=== PATIENT | female | born 1985 | race Caucasian/White ===

== ENCOUNTER 2017-01-30 07:27 | Inpatient (IN) | payer OTHER ==
[2017-01-30] MEDS ORDERED: Sodium Chloride 0.9% 10 ML Syringe FLUSH PRN (08:35)
[2017-01-30] MEDS ORDERED: Ondansetron 4 MG Tab.DIS PO PRN (08:35)
--- NOTE | 2017-01-30 08:57 | PCM.LDHP ---
L&D History of Present Illness - General Date of Service: 01/30/17 (PROM) Admit Problem/Dx: Patient Status Order with Admit Dx/Problem 01/30/17 08:35 Patient Status [ADT] Routine Admission Diagnosis/Problem Admission Diagnosis/Problem Source of Information: Patient History Limitations: Reports: No limitations - History of Present Illness Timing/Duration: Reports: minutes: (3) Location, : Reports: Abdomen Quality: Reports: Pressure Severity: moderate Improves with: Reports: Movement Worsens with: Reports: Rest - Related Data Allergies/Adverse Reactions: Allergies Allergy/AdvReac Type Severity Reaction Status Date / Time amoxicillin Allergy Tachycardia Verified 01/30/17 07:40 Home Medications: Home Meds Aspirin [Halfprin] 81 mg PO DAILY 01/30/17 [History] #57/Iron/FA/DSS/DHA [Extra-Virt Plus Dha Softgel] 1 cap PO DAILY [History] 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 Para: 0 LMP (Approximate): (CHANA 02/11/17) H&P Review of Systems - Review of Systems: Review Of Systems: See Below General: Reports: no symptoms HEENT: Reports: no symptoms Pulmonary: Reports: No Symptoms Cardiovascular: Reports: no symptoms Gastrointestinal: Reports: No symptoms Genitourinary: Reports: no symptoms Musculoskeletal: Reports: no symptoms Skin: Reports: no symptoms Psychiatric: Reports: no symptoms Neurological: Reports: No Symptoms Hematologic/Lymphatic: Reports: no symptoms Immunologic: Reports: no symptoms L&D Exam - Exam Exam: See Below - Vital Signs Vital Signs: Last Vital Signs Temp 98.2 F 01/30/17 07:37 Pulse 69 01/30/17 07:37 Resp 20 01/30/17 07:37 BP 132/88 01/30/17 07:37 Pulse Ox Weight: 190 lb - OB Specific Contraction Intensity: Moderate movement: active heart tones: present (145) Heart Rate (FHR) Variability: Moderate (6-25 bmp) Presentation: Vertex Estimated Weight: 7 pounds - Pereyra Score Pereyra Score Cervix Position: Midposition Pereyra Score Consistency: Soft Pereyra Score Effacement: 31-50% Pereyra Score Dilation: 1-2 cm Pereyra Score Infant's Station: -1 ,0 Pereyra Score Total: 7 - Exam General: alert, oriented HEENT: PERRLA, Conjunctiva clear, EACs clear, EOMI, Hearing intact, Mucosa moist & pink, Nares patent, Normal nasal septum, Posterior pharynx clear, Pupils equal, Pupils reactive, TMs clear Neck: supple, trachea midline Lungs: Clear to auscultation, Normal respiratory effort Cardiovascular: regular rate, regular rhythm Abdomen: soft Rectal Exam: Normal rectal tone Genitourinary: Normal external exam Back Exam: normal inspection, full range of motion Extremities: normal inspection Skin: warm, dry, intact Neurological: cranial nerves intact, reflexes equal bilateral Psychiatric: alert, normal affect, normal mood - Patient Data Lab Results last 24 hrs: Laboratory Results - last 24 hr 01/30/17 Range/Units 07:49 Membrane Rupture Positive H (NEGATIVE) - Problem List (1) Antiphospholipid antibody syndrome complicating SNOMED Code(s): 587480174 ICD Code: O99.119 - OTH DIS OF BLD/BLD-FORM ORG/IMMUN MECHNSM COMP PREG,UNSP TRI; D68.61 - ANTIPHOSPHOLIPID SYNDROME Status: Acute Current Visit: Yes (2) SNOMED Code(s): 53018918 ICD Code: Z33.1 - STATE, INCIDENTAL Status: Acute Current Visit : Yes Qualifiers: Weeks of gestation: 38 weeks Qualified Code(s): Z3A.38 - 38 weeks gestation of (3) PROM (premature rupture of membranes) SNOMED Code(s): 45238439 ICD Code: O42.90 - RAKAN ROM, 7TH0 BETW RUPT & ONST LABR, UNSP WEEKS OF GEST Status: Acute Current Visit: Yes Problem List Initiated/Reviewed/Updated: Yes Orders Last 24hrs: Active Orders 24 hr Category Date Time Status Patient Status [ADT] Routine ADT 01/30/17 08:35 Ordered Antiembolic Devices [RC] .Routine Care 01/30/17 08:38 Ordered Communication Order [RC] ASDIRECTED Care 01/30/17 08:35 Ordered Heart Tones [RC] PER UNIT ROUTINE Care 01/30/17 08:35 Ordered May Shower [RC] ASDIRECTED Care 01/30/17 08:35 Ordered Notify Provider Vital Signs [RC] PRN Care 01/30/17 08:35 Ordered Notify Provider [RC] PRN Care 01/30/17 08:35 Ordered OB Check [OM.PC] Click to Edit Care 01/30/17 07:43 Ordered Up ad Janae [RC] ASDIRECTED Care 01/30/17 08:35 Ordered VTE/DVT Education [RC] Click to Edit Care 01/30/17 08:38 Ordered Vital Signs [RC] PER UNIT ROUTINE Care 01/30/17 08:35 Ordered CBC W/O DIFF,HEMOGRAM [HEME] Routine Lab 01/30/17 08:35 Ordered DRUG SCREEN, URINE [URCHEM] Routine Lab 01/30/17 08:39 Uncollected UA W/MICROSCOPIC [URIN] Routine Lab 01/30/17 08:35 Uncollected Acetaminophen [Tylenol] Med 01/30/17 08:35 Ordered 650 mg PO Q4H PRN Ondansetron [Zofran ODT] Med 01/30/17 08:35 Ordered 4 mg PO Q4H PRN Oxytocin/Normal Saline [Pitocin in NS 20 Units/1,000 ML Med 01/30/17 08:45 Ordered ] 1,000 ml IV TITRATE Sodium Chloride 0.9% [Saline Flush] Med 01/30/17 08:35 Ordered 10 ml FLUSH ASDIRECTED PRN DVT/VTE Prophylaxis Reflex [OM.PC] Routine Oth 01/30/17 08:35 Ordered Saline Lock Insert [OM.PC] Routine Oth 01/30/17 08:35 Ordered Resuscitation Status Routine Resus Stat 01/30/17 08:35 Ordered Assessment/Plan Comment:: This 31 year old who is 38 5/7 weeks gestation presented with PROM. Membranes ruptured at 0500 this morning with clear fluid. Contractions had started at 0100, mild and slowly increasing in intensity. CHANA 02/11/17 based on early US. CE 50/-1. positive Amniosure. History of possible clotting disorder. Never had a positive test, but was treated with Aspirin. Lab: GBS negative Rubella immune ABO A pos Rubella ? Equivocal Plan monitor for active labor pain medication per her request intermittent monitoring Plan for vaginal delivery
[2017-01-30] MEDS ORDERED: fentaNYL 100 MCG/2 ML SDV IVPUSH ONE (10:39)
[2017-01-30] MEDS ORDERED: Oxytocin 10 Units/1 ML SDV ONE (11:48)
[2017-01-30] MEDS ORDERED: Lidocaine 1% 50 ML MDV ONE (11:48)
[2017-01-30] MEDS ORDERED: Naloxone 0.4 MG/ML SDV ONE (11:48)
[2017-01-30] MEDS ORDERED: Lidocaine 1% 50 ML MDV INJECT ONE (11:48)
[2017-01-30] MEDS ORDERED: Lactated Ringers 1,000 ML IV ONE (12:30)
--- NOTE | 2017-01-30 12:31 | PCM.PNLD ---
Labor Progress Note - VS & Meds Vital Signs: Last Vital Signs Temp 98.9 F 01/30/17 10:31 Pulse 84 01/30/17 10:31 Resp 20 01/30/17 10:31 BP 136/94 H 01/30/17 10:34 Pulse Ox 96 01/30/17 10:31 Active Medications: Current Medications Acetaminophen (Tylenol) 650 mg PO Q4H PRN PRN Reason: Pain (Mild 1-3) and fever Oxytocin/Sodium Chloride (Pitocin In Ns 20 Units/1,000 Ml) 20 unit in 1,000 mls @ 6 mls/hr IV TITRATE SEAN; 2 MUNITS/MIN PRN Reason: Protocol Lactated Ringer's (Ringers, Lactated) 1,000 mls @ 999 mls/hr IV BOLUS ONE Stop: 01/30/17 13:30 Last Admin: 01/30/17 12:03 Dose: 999 mls/hr Lactated Ringer's (Ringers, Lactated) 1,000 mls @ 125 mls/hr IV ASDIRECTED SEAN Ondansetron HCl (Zofran Odt) 4 mg PO Q4H PRN PRN Reason: Nausea/Vomiting Sodium Chloride (Saline Flush) 10 ml FLUSH ASDIRECTED PRN PRN Reason: Keep Vein Open Discontinued Medications Fentanyl (Sublimaze) 100 mcg IVPUSH ONETIME ONE Stop: 01/30/17 10:40 Last Admin: 01/30/17 10:47 Dose: 100 mcg Lidocaine HCl (Xylocaine 1%) Confirm Administered Dose 100 ml .ROUTE .STK-MED ONE Stop: 01/30/17 11:49 Naloxone HCl (Narcan) Confirm Administered Dose 0.4 mg .ROUTE .STK-MED ONE Stop: 01/30/17 11:49 Oxytocin (Pitocin) Confirm Administered Dose 10 unit .ROUTE .STK-MED ONE Stop: 01/30/17 11:49 - Uterine Contractions Uterine Monitoring Mode: External [place] Contraction Frequency (min): 2-3 Contraction Duration (sec): 60 Contraction Intensity: Strong Uterine Resting Tone: Soft - Monitoring Monitor Mode: External Ultrasound Heart Rate (FHR) Baseline: 145 Heart Rate (FHR) Variability: Moderate (6-25 bmp) Accelerations: Present, 15x15 Decelerations: None Strip Review: Category I - Vaginal Exam Dilation (cm): 4 Effacement (Percent): 90 Station: 0 Cervical Position: Anterior Sterile Vaginal Exam Performed By: Tessy Mckay Vaginal Exam Comment: Nice progress since since this morning - Labor Progress (Free Text) Labor Progress: Active labor, not coping well requested epidural reactive cat one strip Planning for vaginal delivery
[2017-01-30] MEDS ORDERED: Lactated Ringers 1,000 ML IV SCH (13:30)
[2017-01-30] MEDS ORDERED: Ondansetron 4 MG/2 ML SDV IVPUSH PRN (13:31)
[2017-01-30] MEDS ORDERED: Witch Hazel Medicated Pads 100/Jar TOP PRN (17:43)
[2017-01-30] MEDS ORDERED: Lanolin 100% Cream 40 GM Tube TOP PRN ×2 (17:43→18:19)
[2017-01-30] MEDS ORDERED: Benzocaine 20% Top Spray 56 GM Bottle TOP PRN (17:43)
--- NOTE | 2017-01-30 17:59 | PCM.DEL ---
L & D Note - General Info Date of Service: 01/30/17 (vaginal delivery) Mother's Due Date: 02/11/17 - Delivery Note Labor: spontaneous Delivery Outcome: Livebirth Delivery Method: Spontaneous Vaginal Delivery Infant Delivery Mode: Spontaneous Presentation: Left Occiput Anterior (ABRAHAM) Nuchal cord: none Anesthesia Type: Epidural Anesthetic: lidocaine (xylocaine) 1% plain Local anesthetic volume: 4cc Amniotic Fluid Description: Clear Episiotomy Type: None Laceration: 1st degree, labial, perineal Suture type: vicryl Suture size: 3-0 Placenta: intact, spontaneous Cord: 3 vessels Estimated blood loss: 300 Resuscitation needed: No : bulb syringe, stimulated, blanket used Provider: Tessy Mckay Score 1 min: 9 Score 5 min: 9 Score 10 min: 9 Second Stage Interventions: Reports: Second Nurse Reviewed Heart Tones, Laboring Down, Pushing Effectively, Pushing, McRobert's Position Delivery Comments (Free Text/Narrative):: This 31 year old G3 now P1 38 5/7 weeks gestation delivered a viable male infant in ABRAHAM position at 1715. No nuchal cord. [place] was placed on mother's abdomen, delayed cord clamping. Three vessel cord Apgars 9,9,9. Weight 6-9. [place] cried spontaneously he was dried and stimulated. He transitioned well. To breast at 1741. The placenta was expressed spontaneously intact with active management of the third stage used. She had a left perineal tear which was repaired with 3-0 vicryl 5 interrupted stitches. right labial tear needed 4 stitches to control bleeding. No lacerations of the cervix, vagina or rectum. EBL 300 cc Mother and baby to post and nursery in stable condition. - General Info Date of Service: 01/30/17 Admission Dx/Problem (Free Text): Patient Status Order with Admit Dx/Problem 01/30/17 08:35 Patient Status [ADT] Routine Admission Diagnosis/Problem Admission Diagnosis/Problem Functional Status: Reports: pain controlled - Review of Systems General: Reports: No Symptoms HEENT: Reports: no symptoms Pulmonary: Reports: no symptoms Cardiovascular: Reports: No Symptoms Gastrointestinal: Reports: No symptoms Genitourinary: Reports: no symptoms Musculoskeletal: Reports: no symptoms Skin: Reports: no symptoms Neurological: Reports: No Symptoms Psychiatric: Reports: no symptoms - Patient Data Vitals - most recent: Last Vital Signs Temp 97.8 F 01/30/17 15:58 Pulse 79 01/30/17 15:58 Resp 20 01/30/17 15:58 BP 122/71 01/30/17 15:58 Pulse Ox 95 01/30/17 15:58 Weight - most recent: 190 lb Lab Results last 24 hrs: Laboratory Results - last 24 hr 01/30/17 01/30/17 01/30/17 Range/Units 07:49 08:35 08:39 WBC (4.5-11.0) K/uL RBC (3.30-5.50) M/uL Hgb (12.0-15.0) g/dL Hct (36.0-48.0) % MCV (80-98) fL MCH (27-31) pg MCHC (32-36) % Plt Count (150-400) K/uL Urine Color Yellow Urine Appearance Cloudy Urine pH 7.0 (4.5-8.0) Ur Specific [place] 1.005 L (1.008-1.030) Urine Protein Negative (NEGATIVE) mg/dL Urine Glucose (UA) Normal (NEGATIVE) mg/dL Urine Ketones Negative (NEGATIVE) mg/dL Urine Occult Blood Moderate (NEGATIVE) Urine Nitrite Negative (NEGATIVE) Urine Bilirubin Negative (NEGATIVE) Urine Urobilinogen Normal (NORMAL) mg/dL Ur Leukocyte Esterase Negative (NEGATIVE) Urine RBC 5-10 H (0-5) Urine WBC 0-5 (0-5) Ur Epithelial Cells Moderate Amorphous Sediment Moderate Urine Bacteria Moderate Urine Mucus Few Membrane Rupture Positive H (NEGATIVE) Urine Opiates Screen Negative (NEGATIVE) Ur Oxycodone Screen Negative (NEGATIVE) Urine Methadone Screen Negative (NEGATIVE) Ur Propoxyphene Screen Negative (NEGATIVE) Ur Barbiturates Screen Negative (NEGATIVE) Ur Tricyclics Screen Negative (NEGATIVE) Ur Phencyclidine Scrn Negative (NEGATIVE) Ur Amphetamine Screen Negative (NEGATIVE) U Methamphetamines Scrn Negative (NEGATIVE) Urine MDMA Screen Negative (NEGATIVE) U Benzodiazepines Scrn Negative (NEGATIVE) U Cocaine Metab Screen Negative (NEGATIVE) U Marijuana (THC) Screen Negative (NEGATIVE) 01/30/17 Range/Units 09:00 WBC 15.7 H (4.5-11.0) K/uL RBC 4.86 (3.30-5.50) M/uL Hgb 14.3 (12.0-15.0) g/dL Hct 41.2 (36.0-48.0) % MCV 85 (80-98) fL MCH 29 (27-31) pg MCHC 35 (32-36) % Plt Count 192 (150-400) K/uL Urine Color Urine Appearance Urine pH (4.5-8.0) Ur Specific [place] (1.008-1.030) Urine Protein (NEGATIVE) mg/dL Urine Glucose (UA) (NEGATIVE) mg/dL Urine Ketones (NEGATIVE) mg/dL Urine Occult Blood (NEGATIVE) Urine Nitrite (NEGATIVE) Urine Bilirubin (NEGATIVE) Urine Urobilinogen (NORMAL) mg/dL Ur Leukocyte Esterase (NEGATIVE) Urine RBC (0-5) Urine WBC (0-5) Ur Epithelial Cells Amorphous Sediment Urine Bacteria Urine Mucus Membrane Rupture (NEGATIVE) Urine Opiates Screen (NEGATIVE) Ur Oxycodone Screen (NEGATIVE) Urine Methadone Screen (NEGATIVE) Ur Propoxyphene Screen (NEGATIVE) Ur Barbiturates Screen (NEGATIVE) Ur Tricyclics Screen (NEGATIVE) Ur Phencyclidine Scrn (NEGATIVE) Ur Amphetamine Screen (NEGATIVE) U Methamphetamines Scrn (NEGATIVE) Urine MDMA Screen (NEGATIVE) U Benzodiazepines Scrn (NEGATIVE) U Cocaine Metab Screen (NEGATIVE) U Marijuana (THC) Screen (NEGATIVE) Med Orders - Current: Current Medications Acetaminophen (Tylenol) 650 mg PO Q4H PRN PRN Reason: Pain (Mild 1-3) and fever Oxytocin/Sodium Chloride (Pitocin In Ns 20 Units/1,000 Ml) 20 unit in 1,000 mls @ 6 mls/hr IV TITRATE SEAN; 2 MUNITS/MIN PRN Reason: Protocol Lactated Ringer's (Ringers, Lactated) 1,000 mls @ 125 mls/hr IV ASDIRECTED SEAN Last Admin: 01/30/17 13:48 Dose: 125 mls/hr Ondansetron HCl (Zofran Odt) 4 mg PO Q4H PRN PRN Reason: Nausea/Vomiting Ondansetron HCl (Zofran) 4 mg IVPUSH Q6H PRN PRN Reason: Nausea/Vomiting Last Admin: 01/30/17 13:45 Dose: 4 mg Sodium Chloride (Saline Flush) 10 ml FLUSH ASDIRECTED PRN PRN Reason: Keep Vein Open Discontinued Medications Fentanyl (Sublimaze) 100 mcg IVPUSH ONETIME ONE Stop: 01/30/17 10:40 Last Admin: 01/30/17 10:47 Dose: 100 mcg Lactated Ringer's (Ringers, Lactated) 1,000 mls @ 999 mls/hr IV BOLUS ONE Stop: 01/30/17 13:30 Last Admin: 01/30/17 12:03 Dose: 999 mls/hr Lidocaine HCl (Xylocaine 1%) Confirm Administered Dose 100 ml .ROUTE .STK-MED ONE Stop: 01/30/17 11:49 Naloxone HCl (Narcan) Confirm Administered Dose 0.4 mg .ROUTE .STK-MED ONE Stop: 01/30/17 11:49 Oxytocin (Pitocin) Confirm Administered Dose 10 unit .ROUTE .STK-MED ONE Stop: 01/30/17 11:49 - Exam General: alert, oriented HEENT: Pupils equal, Pupils reactive, EOMI, Mucous membr. moist/pink Neck: supple Lungs: Clear to auscultation, Normal respiratory effort Cardiovascular: Regular Rate, Regular Rhythm Abdomen: bowel sounds present, soft, no tenderness, no distension (Female) Exam: Normal external exam, Normal speculum exam, Normal bimanual exam, Enlarged uterus, Vaginal bleeding Back Exam: normal inspection, full range of motion Extremities: no edema Skin: warm, dry, intact Wound/Incisions: healing well Neurological: no new focal deficit Psy/Mental Status: alert, normal affect, normal mood - Problem List & Annotations (1) Antiphospholipid antibody syndrome complicating SNOMED Code(s): 678748841 Code(s): O99.119 - OTH DIS OF BLD/BLD-FORM ORG/IMMUN MECHNSM COMP PREG,UNSP TRI; D68.61 - ANTIPHOSPHOLIPID SYNDROME Status: Acute Current Visit: Yes (2) SNOMED Code(s): 22440775 Code(s): Z33.1 - STATE, INCIDENTAL Status: Acute Current Visit: Yes Qualifiers: Weeks of gestation: 38 weeks Qualified Code(s): Z3A.38 - 38 weeks gestation of (3) PROM (premature rupture of membranes) SNOMED Code(s): 67140420 Code(s): O42.90 - RAKAN ROM, 7TH0 BETW RUPT & ONST LABR, UNSP WEEKS OF GEST Status: Acute Current Visit: Yes (4) () SNOMED Code(s): 401000060 Code(s): Z78.9 - OTHER SPECIFIED HEALTH STATUS Status: Acute Current Visit: Yes (5) Normal labor and delivery SNOMED Code(s): 91377988, 814424771 Code(s): O80 - ENCOUNTER FOR FULL-TERM UNCOMPLICATED DELIVERY Status: Acute Current Visit: Yes - Problem List Review Problem List Initiated/Reviewed/Updated: Yes - My Orders Last 24 Hours: My Active Orders 01/30/17 07:43 OB Check [OM.PC] Click to Edit 01/30/17 08:35 Communication Order [RC] ASDIRECTED May Shower [RC] ASDIRECTED Notify Provider Vital Signs [RC] PRN Notify Provider [RC] PRN Up ad Janae [RC] ASDIRECTED Vital Signs [RC] PER UNIT ROUTINE Acetaminophen [Tylenol] 650 mg PO Q4H PRN Ondansetron [Zofran ODT] 4 mg PO Q4H PRN Sodium Chloride 0.9% [Saline Flush] 10 ml FLUSH ASDIRECTED PRN DVT/VTE Prophylaxis Reflex [OM.PC] Routine Saline Lock Insert [OM.PC] Routine Resuscitation Status Routine 01/30/17 08:38 Antiembolic Devices [RC] .Routine VTE/DVT Education [RC] Click to Edit 01/30/17 08:45 Oxytocin/Normal Saline [Pitocin in NS 20 Units/1,000 ML] 20 unit in 1,000 ml IV TITRATE 01/30/17 13:05 Urinary Catheter Assessment [RC] ASDIRECTED 01/30/17 13:15 Nguyen Catheter Insertion [Insert Urinary Catheter] [OM.PC] Q24H 01/30/17 13:30 Lactated Ringers [Ringers, Lactated] 1,000 ml IV ASDIRECTED 01/30/17 13:31 Ondansetron [Zofran] 4 mg IVPUSH Q6H PRN 01/30/17 17:43 Patient Status [ADT] Routine Vital Signs [RC] PFP Acetaminophen/oxyCODONE [Percocet 325-5 MG] 1 tab PO Q4H PRN Benzocaine [[id number] 20% [place]] See Dose Instructions TOP Q4H PRN Docusate Sodium [Colace] 100 mg PO BID PRN Ibuprofen [Motrin] 600 mg PO Q6H PRN Lanolin [Lansinoh HPA] 1 gm TOP ASDIRECTED PRN Witch Geraldine [Tucks] 1 pad TOP ASDIRECTED PRN Assess Lochia [WOMSER] Per Unit Routine Assess Uterine Involution [WOMSER] Per Unit Routine 01/30/17 17:44 Ice Therapy [OM.PC] Per Unit Routine Perineal Care [OM.PC] Per Unit Routine Peripheral IV Discontinue [OM.PC] Routine Sitz Bath [OM.PC] Per Unit Routine 01/30/17 Dinner Regular Diet [DIET] 01/31/17 05:11 CBC WITH AUTO DIFF [HEME] AM - Assessment Assessment:: 01/30/17 31 year old without complications CBC in AM - Plan Plan:: This 31 year old who is 38 5/7 weeks gestation presented with PROM. Membranes ruptured at 0500 this morning with clear fluid. Contractions had started at 0100, mild and slowly increasing in intensity. CHANA 02/11/17 based on early US. CE 50/-1. positive Amniosure. History of possible clotting disorder. Never had a positive test, but was treated with Aspirin. Lab: GBS negative Rubella immune ABO A pos Rubella ? Equivocal Plan monitor for active labor pain medication per her request intermittent monitoring Plan for vaginal delivery 01/30/17 Routine cares 24-48 hour stay ice to cheryl area and sitz bath later Finish liter of pitocin then march d/c IV
[2017-01-30] MEDS: Ibuprofen 600 MG Tab PO PRN (20:17)
--- NOTE | 2017-01-31 00:13 | ANES ---
DATE OF SERVICE: 01/30/2017 I got a call at approximately 12:20 for a labor epidural, got to the room, the patient was evaluated and had no significant problems with the anesthesia. Allergic to amoxicillin otherwise negative. Platelet count is 198. Reviewed the risk and benefit with the patient and family. The patient wishes to proceed with a labor epidural. Time out done at 12:31. Back prepped with Betadine x3, 1% lidocaine. Skin wheal done. A 17-gauge Tuohy needle inserted at approximately L3-4, loss of resistance at 5 cm. Catheter was easily placed and left in at 11 cm. A 3 mL test dose done and negative, showed no signs of local toxicity. Then proceeded to give her a 10 mL bolus of ropivacaine and started her on a 0.25% ropivacaine drip at 12 mL an hour. The patient stated that she was comfortable and happy when leaving. Matthew Solano MD /[id number]
[2017-01-31] MEDS: Ibuprofen 600 MG Tab PO PRN ×3 (02:33→17:47)
[2017-01-31] MEDS: Acetaminophen/oxyCODONE 325-5 MG Tab PO PRN (08:18)
--- NOTE | 2017-01-31 10:22 | PCM.PNPP ---
- General Info Date of Service: 01/31/17 (PPD 1) Admission Dx/Problem (Free Text): Patient Status Order with Admit Dx/Problem 01/30/17 08:35 Patient Status [ADT] Routine Admission Diagnosis/Problem Admission Diagnosis/Problem Functional Status: Reports: pain controlled - Review of Systems General: Reports: No Symptoms HEENT: Reports: no symptoms Pulmonary: Reports: no symptoms Cardiovascular: Reports: No Symptoms Gastrointestinal: Reports: No symptoms Genitourinary: Reports: no symptoms Musculoskeletal: Reports: no symptoms Skin: Reports: no symptoms Neurological: Reports: No Symptoms Psychiatric: Reports: no symptoms - General Info Date of Service: 01/31/17 - Patient Data Vital Signs - most recent: Last Vital Signs Temp 98.8 F 01/31/17 08:24 Pulse 80 01/31/17 08:24 Resp 20 01/31/17 08:24 BP 108/68 01/31/17 08:24 Pulse Ox 95 01/31/17 08:24 Weight - most recent: 190 lb I&O - last 24 hours: Intake & Output 01/30/17 01/31/17 01/31/17 22:59 06:59 14:59 Intake Total 2525 1000 Output Total 300 Balance 2225 1000 Lab Results - last 24 hrs: Laboratory Results - last 24 hr 01/30/17 01/30/17 01/31/17 Range/Units 08:35 08:39 05:24 WBC 18.4 H (4.5-11.0) K/uL RBC 4.07 (3.30-5.50) M/uL Hgb 12.0 D (12.0-15.0) g/dL Hct 35.5 L (36.0-48.0) % MCV 87 (80-98) fL MCH 30 (27-31) pg MCHC 34 (32-36) % Plt Count 138 L (150-400) K/uL Neut % (Auto) 71 H (36-66) % Lymph % (Auto) 21 L (24-44) % [place] % (Auto) 8 H (2-6) % Eos % (Auto) 1 L (2-4) % Baso % (Auto) 0 (0-1) % Urine Color Yellow Urine Appearance Cloudy Urine pH 7.0 (4.5-8.0) Ur Specific [place] 1.005 L (1.008-1.030) Urine Protein Negative (NEGATIVE) mg/dL Urine Glucose (UA) Normal (NEGATIVE) mg/dL Urine Ketones Negative (NEGATIVE) mg/dL Urine Occult Blood Moderate (NEGATIVE) Urine Nitrite Negative (NEGATIVE) Urine Bilirubin Negative (NEGATIVE) Urine Urobilinogen Normal (NORMAL) mg/dL Ur Leukocyte Esterase Negative (NEGATIVE) Urine RBC 5-10 H (0-5) Urine WBC 0-5 (0-5) Ur Epithelial Cells Moderate Amorphous Sediment Moderate Urine Bacteria Moderate Urine Mucus Few Urine Opiates Screen Negative (NEGATIVE) Ur Oxycodone Screen Negative (NEGATIVE) Urine Methadone Screen Negative (NEGATIVE) Ur Propoxyphene Screen Negative (NEGATIVE) Ur Barbiturates Screen Negative (NEGATIVE) Ur Tricyclics Screen Negative (NEGATIVE) Ur Phencyclidine Scrn Negative (NEGATIVE) Ur Amphetamine Screen Negative (NEGATIVE) U Methamphetamines Scrn Negative (NEGATIVE) Urine MDMA Screen Negative (NEGATIVE) U Benzodiazepines Scrn Negative (NEGATIVE) U Cocaine Metab Screen Negative (NEGATIVE) U Marijuana (THC) Screen Negative (NEGATIVE) Med Orders - Current: Current Medications Acetaminophen (Tylenol) 650 mg PO Q4H PRN PRN Reason: Pain (Mild 1-3) and fever Benzocaine ([id number]-[id number] 20% Mode) 0 gm TOP Q4H PRN PRN Reason: Perineal Comfort Measure Last Admin: 01/30/17 21:02 Dose: 56 gm Docusate Sodium (Colace) 100 mg PO BID PRN PRN Reason: Constipation Emollient Ointment (Lansinoh Hpa) 0 gm TOP ASDIRECTED PRN PRN Reason: Sore Nipples Last Admin: 01/30/17 21:06 Dose: 40 gm Oxytocin/Sodium Chloride (Pitocin In Ns 20 Units/1,000 Ml) 20 unit in 1,000 mls @ 6 mls/hr IV TITRATE SEAN; 2 MUNITS/MIN PRN Reason: Protocol Lactated Ringer's (Ringers, Lactated) 1,000 mls @ 125 mls/hr IV ASDIRECTED SEAN Last Admin: 01/30/17 13:48 Dose: 125 mls/hr Ibuprofen (Motrin) 600 mg PO Q6H PRN PRN Reason: mild pain or fever Last Admin: 01/31/17 09:54 Dose: 600 mg Ondansetron HCl (Zofran Odt) 4 mg PO Q4H PRN PRN Reason: Nausea/Vomiting Ondansetron HCl (Zofran) 4 mg IVPUSH Q6H PRN PRN Reason: Nausea/Vomiting Last Admin: 01/30/17 13:45 Dose: 4 mg Oxycodone/Acetaminophen (Percocet 325-5 Mg) 1 tab PO Q4H PRN PRN Reason: Pain (moderate 4-6) Last Admin: 01/31/17 08:18 Dose: 1 tab Sodium Chloride (Saline Flush) 10 ml FLUSH ASDIRECTED PRN PRN Reason: Keep Vein Open Witch Geraldine (Tucks) 1 pad TOP ASDIRECTED PRN PRN Reason: Hemorrhoids Last Admin: 01/31/17 08:18 Dose: 1 applic Discontinued Medications Emollient Ointment (Lansinoh Hpa) 1 gm TOP ASDIRECTED PRN PRN Reason: Sore Nipples Fentanyl (Sublimaze) 100 mcg IVPUSH ONETIME ONE Stop: 01/30/17 10:40 Last Admin: 01/30/17 10:47 Dose: 100 mcg Lactated Ringer's (Ringers, Lactated) 1,000 mls @ 999 mls/hr IV BOLUS ONE Stop: 01/30/17 13:30 Last Admin: 01/30/17 12:03 Dose: 999 mls/hr Lidocaine HCl (Xylocaine 1%) Confirm Administered Dose 100 ml .ROUTE .STK-MED ONE Stop: 01/30/17 11:49 Last Admin: 01/30/17 17:20 Dose: 100 ml Naloxone HCl (Narcan) Confirm Administered Dose 0.4 mg .ROUTE .STK-MED ONE Stop: 01/30/17 11:49 Last Admin: 01/30/17 19:10 Dose: Not Given Oxytocin (Pitocin) Confirm Administered Dose 10 unit .ROUTE .STK-MED ONE Stop: 01/30/17 11:49 Last Admin: 01/30/17 19:10 Dose: Not Given - Infant Interaction Disposition, : in Room with Family Interaction: Holding Feeding: Breastfed ; Nursed Well Support Person: - Recovery Exam Fundal Tone: Firm Fundal Level: 2 Fingerbreadths Below Umbilicus Fundal Placement: Midline Lochia Amount: Small Lochia Color: Rubra/Red Perineum Description: Intact, Minimal Bruising/Swelling Episiotomy/Laceration: Approximated Bladder Status: Voiding - Exam General: alert, oriented HEENT: Pupils equal Neck: supple Lungs: Clear to auscultation, Normal respiratory effort Cardiovascular: Regular Rate, Regular Rhythm Abdomen: bowel sounds present, soft, no tenderness, no distension Extremities: no edema Skin: warm, dry, intact Wound/Incisions: healing well Neurological: no new focal deficit Psy/Mental Status: alert, normal affect, normal mood - Problem List & Annotations (1) Antiphospholipid antibody syndrome complicating SNOMED Code(s): 601790903 Code(s): O99.119 - OTH DIS OF BLD/BLD-FORM ORG/IMMUN MECHNSM COMP PREG,UNSP TRI; D68.61 - ANTIPHOSPHOLIPID SYNDROME Status: Acute Current Visit: Yes (2) SNOMED Code(s): 57496889 Code(s): Z33.1 - STATE, INCIDENTAL Status: Acute Current Visit: Yes Qualifiers: Weeks of gestation: 38 weeks Qualified Code(s): Z3A.38 - 38 weeks gestation of (3) PROM (premature rupture of membranes) SNOMED Code(s): 46020845 Code(s): O42.90 - RAKAN ROM, 7TH0 BETW RUPT & ONST LABR, UNSP WEEKS OF GEST Status: Acute Current Visit: Yes Qualifiers: PROM onset of labor timing: onset of labor within 24 hours of rupture PROM gestational age: full term Qualified Code(s): O42.02 - Full-term premature rupture of membranes, onset of labor within 24 hours of rupture (4) (infant) SNOMED Code(s): 595036035 Code(s): Z78.9 - OTHER SPECIFIED HEALTH STATUS Status: Acute Current Visit: Yes (5) Normal labor and delivery SNOMED Code(s): 96583900, 017256856 Code(s): O80 - ENCOUNTER FOR FULL-TERM UNCOMPLICATED DELIVERY Status: Acute Current Visit: Yes - Problem List Review Problem List Initiated/Reviewed/Updated: Yes - My Orders Last 24 Hours: My Active Orders 01/30/17 13:15 Nguyen Catheter Insertion [Insert Urinary Catheter] [OM.PC] Q24H 01/30/17 13:30 Lactated Ringers [Ringers, Lactated] 1,000 ml IV ASDIRECTED 01/30/17 13:31 Ondansetron [Zofran] 4 mg IVPUSH Q6H PRN 01/30/17 17:43 Patient Status [ADT] Routine Vital Signs [RC] Q4H Acetaminophen/oxyCODONE [Percocet 325-5 MG] 1 tab PO Q4H PRN Benzocaine [Evle-E-Kjkcgeo 20% Mode] See Dose Instructions TOP Q4H PRN Docusate Sodium [Colace] 100 mg PO BID PRN Ibuprofen [Motrin] 600 mg PO Q6H PRN Witch Geraldine [Tucks] 1 pad TOP ASDIRECTED PRN Assess Lochia [WOMSER] Per Unit Routine Assess Uterine Involution [WOMSER] Per Unit Routine 01/30/17 17:44 Ice Therapy [OM.PC] Per Unit Routine Perineal Care [OM.PC] Per Unit Routine Peripheral IV Discontinue [OM.PC] Routine Sitz Bath [OM.PC] Per Unit Routine 01/30/17 18:19 Lanolin [Lansinoh HPA] 0 gm TOP ASDIRECTED PRN 01/30/17 Dinner Regular Diet [DIET] - Assessment Assessment:: 01/30/17 31 year old without complications CBC in AM 01/31/17 without complications, bleeding light, feels well HGB 12.1 going well - Plan Plan:: This 31 year old who is 38 5/7 weeks gestation presented with PROM. Membranes ruptured at 0500 this morning with clear fluid. Contractions had started at 0100, mild and slowly increasing in intensity. CHANA 02/11/17 based on early US. CE /-1. positive Amniosure. History of possible clotting disorder. Never had a positive test, but was treated with Aspirin. Lab: GBS negative Rubella immune ABO A pos Rubella ? Equivocal Plan monitor for active labor pain medication per her request intermittent monitoring Plan for vaginal delivery 01/30/17 Routine cares 24-48 hour stay ice to cheryl area and sitz bath later Finish liter of pitocin then march d/c IV 01/31/17 routine cares home tomorrow up and about today support
[2017-01-31] MEDS: Acetaminophen 325 MG Tab PO PRN ×2 (12:59→22:10)
[2017-01-31] MEDS: Docusate Sodium 100 MG Cap PO PRN (22:10)
[2017-02-01] MEDS: Ibuprofen 600 MG Tab PO PRN (03:05)
[2017-02-01] MEDS: Docusate Sodium 100 MG Cap PO PRN (07:44)
[2017-02-01] MEDS: Acetaminophen/oxyCODONE 325-5 MG Tab PO PRN (07:44)
[2017-02-01 08:29] VITALS: BP 122/70
--- NOTE | 2017-02-01 09:26 | PCM.PNPP ---
- General Info Date of Service: 02/01/17 (PPD 2 D/C) Admission Dx/Problem (Free Text): Patient Status Order with Admit Dx/Problem 01/30/17 08:35 Patient Status [ADT] Routine Admission Diagnosis/Problem Admission Diagnosis/Problem Functional Status: Reports: pain controlled - Review of Systems General: Reports: No Symptoms HEENT: Reports: no symptoms Pulmonary: Reports: no symptoms Cardiovascular: Reports: No Symptoms Gastrointestinal: Reports: No symptoms Genitourinary: Reports: no symptoms Musculoskeletal: Reports: no symptoms Skin: Reports: no symptoms Neurological: Reports: No Symptoms Psychiatric: Reports: no symptoms - Patient Data Vital Signs - most recent: Last Vital Signs Temp 97.5 F 02/01/17 08:00 Pulse 80 02/01/17 08:00 Resp 16 02/01/17 08:00 BP 122/70 02/01/17 08:00 Pulse Ox 97 02/01/17 08:00 Weight - most recent: 190 lb I&O - last 24 hours: Intake & Output 01/31/17 02/01/17 02/01/17 22:59 06:59 14:59 Intake Total 800 Balance 800 Lab Results - last 24 hrs: Laboratory Results - last 24 hr 02/01/17 Range/Units 08:50 WBC 14.3 H (4.5-11.0) K/uL RBC 4.44 (3.30-5.50) M/uL Hgb 13.2 (12.0-15.0) g/dL Hct 39.3 (36.0-48.0) % MCV 89 (80-98) fL MCH 30 (27-31) pg MCHC 34 (32-36) % Plt Count 170 (150-400) K/uL Neut % (Auto) 71 H (36-66) % Lymph % (Auto) 22 L (24-44) % [place] % (Auto) 6 (2-6) % Eos % (Auto) 1 L (2-4) % Baso % (Auto) 0 (0-1) % Med Orders - Current: Current Medications Acetaminophen (Tylenol) 650 mg PO Q4H PRN PRN Reason: Pain (Mild 1-3) and fever Last Admin: 01/31/17 22:10 Dose: 650 mg Benzocaine (Wmmx-I-Ucklxxy 20% [place]) 0 gm TOP Q4H PRN PRN Reason: Perineal Comfort Measure Last Admin: 01/30/17 21:02 Dose: 56 gm Docusate Sodium (Colace) 100 mg PO BID PRN PRN Reason: Constipation Last Admin: 02/01/17 07:44 Dose: 100 mg Emollient Ointment (Lansinoh Hpa) 0 gm TOP ASDIRECTED PRN PRN Reason: Sore Nipples Last Admin: 01/30/17 21:06 Dose: 40 gm Oxytocin/Sodium Chloride (Pitocin In Ns 20 Units/1,000 Ml) 20 unit in 1,000 mls @ 6 mls/hr IV TITRATE SEAN; 2 MUNITS/MIN PRN Reason: Protocol Lactated Ringer's (Ringers, Lactated) 1,000 mls @ 125 mls/hr IV ASDIRECTED SEAN Last Admin: 01/30/17 13:48 Dose: 125 mls/hr Oxytocin/Sodium Chloride (Pitocin In Ns 20 Units/1,000 Ml) 20 unit in 1,000 mls @ 2,997 mls/hr IV BOLUS SEAN PRN Reason: 999 MUNITS/MIN Ibuprofen (Motrin) 600 mg PO Q6H PRN PRN Reason: mild pain or fever Last Admin: 02/01/17 03:05 Dose: 600 mg Ondansetron HCl (Zofran Odt) 4 mg PO Q4H PRN PRN Reason: Nausea/Vomiting Ondansetron HCl (Zofran) 4 mg IVPUSH Q6H PRN PRN Reason: Nausea/Vomiting Last Admin: 01/30/17 13:45 Dose: 4 mg Oxycodone/Acetaminophen (Percocet 325-5 Mg) 1 tab PO Q4H PRN PRN Reason: Pain (moderate 4-6) Last Admin: 02/01/17 07:44 Dose: 1 tab Sodium Chloride (Saline Flush) 10 ml FLUSH ASDIRECTED PRN PRN Reason: Keep Vein Open Witch Geraldine (Tucks) 1 pad TOP ASDIRECTED PRN PRN Reason: Hemorrhoids Last Admin: 01/31/17 08:18 Dose: 1 applic Discontinued Medications Emollient Ointment (Lansinoh Hpa) 1 gm TOP ASDIRECTED PRN PRN Reason: Sore Nipples Fentanyl (Sublimaze) 100 mcg IVPUSH ONETIME ONE Stop: 01/30/17 10:40 Last Admin: 01/30/17 10:47 Dose: 100 mcg Lactated Ringer's (Ringers, Lactated) 1,000 mls @ 999 mls/hr IV BOLUS ONE Stop: 01/30/17 13:30 Last Admin: 01/30/17 12:03 Dose: 999 mls/hr Lidocaine HCl (Xylocaine 1%) Confirm Administered Dose 100 ml .ROUTE .STK-MED ONE Stop: 01/30/17 11:49 Last Admin: 01/30/17 17:20 Dose: 100 ml Lidocaine HCl (Xylocaine 1%) 100 ml INJECT ONETIME ONE Stop: 01/30/17 11:49 Last Admin: 01/31/17 12:59 Dose: Not Given Naloxone HCl (Narcan) Confirm Administered Dose 0.4 mg .ROUTE .STK-MED ONE Stop: 01/30/17 11:49 Last Admin: 01/30/17 19:10 Dose: Not Given Oxytocin (Pitocin) Confirm Administered Dose 10 unit .ROUTE .STK-MED ONE Stop: 01/30/17 11:49 Last Admin: 01/30/17 19:10 Dose: Not Given - Interaction Infant Disposition, : [place] in Room with Family Infant Interaction: Holding Infant Feeding: Breastfed Infant; Nursed Well Support Person: - Recovery Exam Fundal Tone: Firms with Massage Fundal Level: 2 Fingerbreadths Below Umbilicus Fundal Placement: Midline Lochia Amount: Small Lochia Color: Rubra/Red Perineum Description: Intact, Minimal Bruising/Swelling Episiotomy/Laceration: Approximated Bladder Status: Voiding Urinary Elimination: Voided - Exam General: alert, oriented HEENT: Pupils equal Neck: supple Lungs: Clear to auscultation, Normal respiratory effort Cardiovascular: Regular Rate, Regular Rhythm Abdomen: bowel sounds present, soft, no tenderness, no distension Extremities: no edema Skin: warm, dry, intact Wound/Incisions: healing well Neurological: no new focal deficit Psy/Mental Status: alert, normal affect, normal mood - Problem List & Annotations (1) Antiphospholipid antibody syndrome complicating SNOMED Code(s): 488335350 Code(s): O99.119 - OTH DIS OF BLD/BLD-FORM ORG/IMMUN MECHNSM COMP PREG,UNSP TRI; D68.61 - ANTIPHOSPHOLIPID SYNDROME Status: Acute Current Visit: Yes (2) SNOMED Code(s): 73866577 Code(s): Z33.1 - STATE, INCIDENTAL Status: Acute Current Visit: Yes Qualifiers: Weeks of gestation: 38 weeks Qualified Code(s): Z3A.38 - 38 weeks gestation of (3) PROM (premature rupture of membranes) SNOMED Code(s): 36494255 Code(s): O42.90 - RAKAN ROM, 7TH0 BETW RUPT & ONST LABR, UNSP WEEKS OF GEST Status: Acute Current Visit: Yes Qualifiers: PROM onset of labor timing: onset of labor within 24 hours of rupture PROM gestational age: full term Qualified Code(s): O42.02 - Full-term premature rupture of membranes, onset of labor within 24 hours of rupture (4) (infant) SNOMED Code(s): 285952133 Code(s): Z78.9 - OTHER SPECIFIED HEALTH STATUS Status: Acute Current Visit: Yes (5) Normal labor and delivery SNOMED Code(s): 73278129, 222030944 Code(s): O80 - ENCOUNTER FOR FULL-TERM UNCOMPLICATED DELIVERY Status: Acute Current Visit: Yes - Problem List Review Problem List Initiated/Reviewed/Updated: Yes - My Orders Last 24 Hours: My Active Orders 01/31/17 11:35 Discontinue Saline Lock [Peripheral IV Discontinue] [OM.PC] Routine - Assessment Assessment:: 01/30/17 31 year old without complications CBC in AM 01/31/17 without complications, bleeding light, feels well HGB 12.1 going well 02/01/17 Doing well, wants to go home Breast milk not in yet Recheck WBC today as yesterday it was 18.2 today 14.3 - Plan Plan:: This 31 year old who is 38 5/7 weeks gestation presented with PROM. Membranes ruptured at 0500 this morning with clear fluid. Contractions had started at 0100, mild and slowly increasing in intensity. CHANA 02/11/17 based on early US. CE /-1. positive Amniosure. History of possible clotting disorder. Never had a positive test, but was treated with Aspirin. Lab: GBS negative Rubella immune ABO A pos Rubella ? Equivocal Plan monitor for active labor pain medication per her request intermittent monitoring Plan for vaginal delivery 01/30/17 Routine cares 24-48 hour stay ice to cheryl area and sitz bath later Finish liter of pitocin then march d/c IV 01/31/17 routine cares home tomorrow up and about today support 02/01/17 Home today see me in 6 weeks for a post visit
== END 2017-02-01 11:15 | disposition home or self-care (01) | DRG 775 ==
LOC: JP.OBCHECK 07:27 → JP.OB 08:25 → JP.MS 17:15 → JP.OB 17:15 → OBSVTOIN 17:15
PROVIDERS: ADMIT Nurse Practitioner Family; ATTEND Nurse Practitioner Family
PROC: 00HU33Z Insertion of Infusion Device into Spinal Canal, Percutaneous Approach (ICD-10-PCS; principal; 2017-01-30)
PROC: 0HQ9XZZ Repair Perineum Skin, External Approach (ICD-10-PCS; 2017-01-30)
PROC: 10E0XZZ Delivery of Products of Conception, External Approach (ICD-10-PCS; 2017-01-30)
PROC: 0UQMXZZ Repair Vulva, External Approach (ICD-10-PCS; 2017-01-30)
DX: O70.0 First degree perineal laceration during delivery (principal); O99.119 Other diseases of the blood and blood-forming organs and certain disorders involving the immune mechanism complicating pregnancy, unspecified trimester; O42.02 Full-term premature rupture of membranes, onset of labor within 24 hours of rupture; Z3A.39 39 weeks gestation of pregnancy; Z37.0 Single live birth; Z79.82 Long term (current) use of aspirin; Z88.1 Allergy status to other antibiotic agents
CPT/HCPCS: 36415; 80305; 81001; 84112; 85025; 85027; 99211; A9270-GY; J2405; J2590; J3010; J7120